=== PATIENT | male | born 1955 | race Caucasian/White ===

== ENCOUNTER 2016-09-16 12:16 | Emergency (ER) | payer OTHER ==
[~2016-09-16] VITALS: Ht 172.7 cm; Wt 100.0 kg
[2016-09-16] MEDS ORDERED: SODIUM CHLORIDE 0.9% 1,000ML IVBOLUS ONE (12:30)
[2016-09-16 13:11] LABS: BLOOD UREA NITROGEN 10 mg/dL (7-18)
[2016-09-16 13:13] LABS: ASPARTATE AMINO TRANSFERASE 35 U/L (15-37)
[2016-09-16 13:16] LABS: IS PT STATUS REG ER OR PRE ER? YES
[2016-09-16 13:28] VITALS: BP 130/82
[2016-09-16] MEDS ORDERED: AMLO10TA2 PO (13:30)
[2016-09-16] MEDS ORDERED: LISI-167 PO (13:30)
== END 2016-09-16 14:06 | disposition home or self-care (01) ==
LOC: ED 13:27
DX: R55 Syncope and collapse (principal); R53.1 Weakness; I10 Essential (primary) hypertension; E11.9 Type 2 diabetes mellitus without complications
CPT/HCPCS: 36415; 71010; 80053; 84484; 85025; 93005; 99285; J7030

== ENCOUNTER 2017-10-01 07:20 | Emergency (ER) | payer OTHER ==
[~2017-10-01] VITALS: Ht 172.7 cm; Wt 96.6 kg
[~2017-10-01 07:20] MED LIST: AMLO10TA2 PO; LISI-167 PO
[2017-10-01 08:08] LABS: BASOPHILS # (AUTO) 0.02 x10^3/uL (0-0.1); BASOPHILS % (AUTO) 0 % (0-1); EOSINOPHILS # (AUTO) 0.05 x10^3/uL (0-0.4); EOSINOPHILS % (AUTO) 1 % (1-7); LYMPHOCYTES # (AUTO) 1.28 x10^3/uL (1-3.4); LYMPHOCYTES % (AUTO) 17 % (22-44); MD NO; MEAN CORPUSCULAR HEMOGLOBIN 31.1 pg (27.5-34.5); MEAN CORPUSCULAR HGB CONC 34.2 g/dL (33.2-36.2); MEAN CORPUSCULAR VOLUME 90.9 fL (81-97); MEAN PLATELET VOLUME 7.8 fL (7.4-10.4); MONOCYTES # (AUTO) 0.41 x10^3/uL (0.2-0.8); MONOCYTES % (AUTO) 5 % (2-9); NEUTROPHILS # (AUTO) 5.75 x10^3/uL (1.8-6.8); NEUTROPHILS % (AUTO) 77 % (42-75); PLATELET COUNT 233 x10^3/uL (130-400); RED BLOOD COUNT 5.22 x10^6/uL (4.38-5.82); RED CELL DISTRIBUTION WIDTH 12.7 % (9.4-14.8)
[2017-10-01] MEDS ORDERED: LORazepam 0.5MG TABLET ONE (08:12)
[2017-10-01 08:19] LABS: ALBUMIN 4.5 g/dL (3.4-5.0); ANION GAP 6 mmol/L (5-15); CALCIUM 9.7 mg/dL (8.5-10.1); CHLORIDE 104 mmol/L (98-107); CREATININE 1.05 mg/dL (0.7-1.3)
[2017-10-01] MEDS ORDERED: METFORMIN (08:19)
[2017-10-01] MEDS ORDERED: HYDR25TA6 PO (08:19)
[2017-10-01 08:22] VITALS: BP 135/94
== END 2017-10-01 09:08 | disposition home or self-care (01) ==
LOC: ED 07:47
DX: F41.1 Generalized anxiety disorder (principal); I10 Essential (primary) hypertension; E11.9 Type 2 diabetes mellitus without complications
CPT/HCPCS: 36415; 80048; 82040; 85025; 93005; 99285